=== PATIENT | female | born 1990 | race Caucasian/White ===

== ENCOUNTER 2025-03-24 17:48 | Emergency (ER) | payer OTHER, SELFPAY ==
[2025-03-24 17:48] VITALS: BP 132/94; PULSE 99; RESP 20; TEMP 37; O2SAT 98
--- NOTE | 2025-03-24 18:02 | ED.LOWEXIN ---
HPI - Extremity Injury (Lower) General Chief Complaint: Extremity Injury, Lower Stated Complaint: right knee pain Time Seen by Provider: 03/24/25 18:02 Source: patient and family Mode of arrival: ambulatory Limitations: no limitations History of Present Illness HPI Narrative: Patient is a 34-year-old female with right knee pain and unknown meniscus tear. Patient went to [facility] and got an MRI and was found to have a tear laterally. She has seen validation specialist and they were trying to arrange physical therapy. She has come to the ER for acute treatment at this time. No signs of opioids abuse at this time. No drug-seeking behavior. No injury. MD complaint: other (Right knee pain with known meniscal tear) Onset (ago): month(s) (2-3) Type of Injury: other (No injury) Place: home Severity: severe Severity scale (1-10): 8 Relieving factors: nothing Exacerbating factors: weight bearing, movement and palpation Context: other (No injury) Associated symptoms: snap/pop sensation, swelling and able to partially bear weight Other symptoms: none Treatments prior to arrival: other (None) Related Data Allergies Allergy/AdvReac Type Severity Reaction Status Date / Time No Known Allergies Allergy Verified 03/24/25 18:03 Review of Systems Review of Systems: All systems reviewed & are unremarkable except as noted in HPI and below Constitutional: Constitutional: Reports no additional constitutional complaints Eyes: Eyes: Reports no additional eye complaints ENT: Reports system reviewed and no additional complaints, except as documented Cardiovascular: Cardiovascular: Reports no additional cardiovascular complaints Respiratory: Respiratory: Reports no additional respiratory complaints Gastrointestinal: Gastrointestinal: Reports no additional gastrointestinal complaints Genitourinary: Genitourinary: Reports no additional female genitourinary complaints Musculoskeletal: Musculoskeletal: Reports no additional musculoskeletal complaints Integumentary/Breasts: Skin/Breast: Reports system reviewed and no additional complaints, except as docu Neurologic: Reports system reviewed and no additional complaints, except as documented Psychiatric: Psychiatric: Reports no additional psychiatric complaints Endocrine: Endocrine: Reports no additional endocrine complaints Hematologic/Lymphatic: Hematologic/Lymphatic: Reports no additional hematologic/lymphatic complaints Allergic/Immunologic: Allergic/Immunologic: Reports no additional allergic/immunologic complaints Exam Const: General: healthy appearing Nutritional Appearance: well nourished Orientation/consciousness: patient oriented x3 HENMT: Head: normal to inspection Ears: external ears normal Face/Nose/Sinus: Normal external nose present Eyes: Conjunctivae: conjunctivae normal Pupils: Equal, round and reactive pupils present EOM: EOMs intact bilaterally Neck: Neck: normal visual inspection Chest: Chest palpation & inspection: normal inspection of the chest Resp: Effort & Inspection: normal respiratory effort and not labored Auscultation: clear to auscultation bilaterally and no crackles Cardio: Rate: regular rate Rhythm: regular rhythm Heart sounds: no murmurs GI: Inspection: non-distended GI Palp: Yes Soft to palpation and No Tenderness to palpation present (GI) Auscultation: normal bowel sounds : General: Yes bladder normal to palpation Back/Spine/Pelvis: Back: no CVA tenderness Skin: General skin exam: normal color Rashes: no rashes Wounds: no wounds Neuro: General: patient oriented x3, moves all extremities and no meningeal signs Extrem: General: normal to inspection, no clubbing, cyanosis or edema and no pedal edema Other: Right knee laterally is tender to manipulation of the knee and meniscus manipulation; no warmth or signs of infection; minimal swelling; kneecap in place Psych: Mental Status: mental status grossly normal Affect: normal affect Attitude: cooperative MDM - Extremity Injury (Lower) MDM Narrative Medical decision making narrative: Patient is a 34-year-old female with right knee pain known meniscus tear. X-ray will not be helpful as she already knows that there is a tear. No new injury. No injury in general. We will do a steroid, anti-inflammatory and narcotic. We will send her home with these 3 things in a short supply. She is [facility] to [facility] and I have explained that we do not do refills of any kind of pain medicine. This is a 1st visit and she is been counseled on narcotics at the hospital and in the community. Discharge Plan Discharge Clinical Impression: Acute internal derangement of knee Patient Disposition: Home Condition: Stable Instructions: Meniscus Tear (ED) Additional Instructions: Please touch base with the orthopedic surgeon for next plan of action to repair this right knee. You should be doing rest, ice, compression and elevation to this right knee. Patient Language: Upper Sorbian Prescriptions: New prednisone 20 mg tablet 40 mg PO DAILY 3 Days Qty: 6 0RF meloxicam 15 mg tablet 15 mg PO DAILY Qty: 20 0RF hydrocodone-acetaminophen 5-325 mg tablet 1 tablet PO Q8H PRN (Reason: pain) Qty: 20 0RF Rx Instructions: 1-2 tabs per dose Follow-up/Referrals: UNKNOWN,DOCTOR [Non-Staff] Time of Disposition: 18:26
--- OUTSIDE RECORDS SUMMARY | 2025-03-24 18:28 | XMS_ITS | Clinical Summary ---
Author Organization [facility] Address [address] [place] [address] Care Team Providers Care Auto Claim Representative Name Role Phone No, Physician Primary Care Provider [phone] Allergies No known active allergies Medications losartan (COZAAR) 100 mg tablet Take 1 tablet (100 mg total) by mouth daily 01/05/20 23 Active etonogestreL-ethi nyl estradioL (NUVARING, ELURYNG) 0.12-0.015 mg/24 hr vaginal ringIndications:E ncounter for general counseling and advice on contraceptive management INSERT 1 RING VAGINALLY FOR 3 WEEKS THEN REMOVE FOR 1 WEEK 1 each 2 12/03/19 24 Active Additional Information Patient not taking.Reported on 01/28/2025 methocarbamoL (ROBAXIN) 500 mg tablet Take 1 tablet (500 mg total) by mouth 2 (two) times a day 20 tablet 01/16/20 25 Active Additional Information Patient not taking.Reported on 01/28/2025 HYDROcodone-aceta minophen (NORCO) 5-325 mg per tabletIndications :Pain Take 1 tablet by mouth every 6 (six) hours as needed for pain for up to 12 doses 12 tablet 01/16/20 25 Active Additional Information Patient not taking.Reported on 01/28/2025 losartan (COZAAR) 100 mg tablet Take 1 tablet (100 mg total) by mouth daily 30 tablet 01/16/20 25 Active ketorolac (TORADOL) 10 mg tablet Take 1 tablet (10 mg total) by mouth every 6 (six) hours as needed for pain 20 tablet 02/06/20 25 Active valACYclovir (VALTREX) 1 gram tablet Take 2 tabs (2000 mg) 2 times a days for 1 day. 4 tablet 03/24/20 Active valACYclovir (VALTREX) 1 gram tablet Take 2 tabs (2000 mg) 2 times a days for 1 day. 4 tablet 12/23/19 025 Discontin ued(Reord er) Active Problems Problem Noted Date Diagnosed Date Encounter for screening for COVID-19 05/14/2023 Severe obesity (BMI >= 40) 01/17/2023 Hypertension 01/17/2023 Encounters Date Type Department Care Team Description 03/24/2025 [facility] [address] [facility] [address] [place] [address] Coni Gamboa MD 02/23/2025 12:50 PM CDT Lab [facility] [address] [facility] [address] [place] [address] Missed menses 02/20/2025 [facility] [address] [facility] [address] [place] [address] Coni Gamboa MD Patient issue/concern 02/04/2025 7:56 AM CDT - 02/04/2025 11:59 PM CDT Hospital Encounter [facility] 1 [place] [address] Right knee pain, unspecified chronicity; Other tear of lateral meniscus of right knee as current injury, initial encounter Discharge Disposition: Discharge to home or self care 02/02/2025 Telephone [facility] Medical [facility]opedic [facility] Sports Medicine [facility] [place] [phone] Tania Morales PA MRI 01/28/2025 9:30 AM CDT Office Visit [facility] [address] [place] [address] [address] [place] [address] Tania Morales PA Right knee pain, unspecified chronicity (Primary Dx); Other tear of lateral meniscus of right knee as current injury, initial encounter 01/28/2025 7:37 AM CDT - 01/28/2025 11:59 PM CDT Hospital Encounter [facility] Medical [facility] Medicine [address] [place] [address] [address], [place] [address] Discharge Disposition: Discharge to home or self care 01/28/2025 7:37 AM CDT - 01/28/2025 11:59 PM CDT Hospital Encounter [facility] [address] [place] [address], [place] [phone] Discharge Disposition: Discharge to home or self care 01/28/2025 Orders Only [facility] [address] [place] [address] [address], [place] [phone] Tania Morales PA Right knee pain, unspecified chronicity (Primary Dx); Other tear of lateral meniscus of right knee as current injury, initial encounter 01/20/2025 Telephone [facility] Emergency Department [address] [place] [address] Jose Cruz Hernadez RN 01/19/2025 Results Follow-Up [facility] Emergency Department [address] [place] [address] Jose Cruz Hernadez RN Urinalysis reflex to microscopic and culture Urine 01/18/2025 1:16 PM CDT - 01/18/2025 6:22 PM CDT Emergency [facility] Emergency Department [address] [place] [phone] Acute pain of right knee (Primary Dx); Elevated C-reactive protein (CRP); ESR raised Discharge Disposition: Discharge to home or self care 01/16/2025 Telephone [facility] [place] [address] [place] [phone] Val Cuellar NP 01/16/2025 Telephone [facility] [address] [place] [address] [place] [phone] Vince Arnold MD 01/15/2025 12:23 PM CDT - 01/15/2025 12:39 PM CDT Emergency [facility] Emergency Department 1 [place] [address] Acute pain of right knee (Primary Dx) Discharge Disposition: Discharge to home or self care 12/22/2024 Telephone [facility] [address] [place] [address] Coni Gamboa MD from Last 3 Months Surgical History Surgery Date Site/Laterality Comments SECTION 04/30/2010 - 04/29/2011 CA TONSILLECTOMY PRIMARY/SECONDARY <AGE 12 Tonsillectomy - (Added by TW Conv) Medical History Medical History Date Comments Personal history of other me ntal and behavioral disorders History of depression - (Add ed by TW Conv) 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 Stress headaches - (Added by TW Conv) Overweight Overweight - (Ad ded by TW Conv) Hypertension Genital herpes Family History Medical History Relation Name Comments Hypertension Father Stomach cancer Maternal Grandfather Famil y history of malignant neoplasm of stomach - (Added by TW Conv) Lung cancer Maternal Grandmother Family history of lung cancer - (Added by TW Conv) Stomach cancer Maternal Grandmother Famil y history of malignant neoplasm of stomach - (Added by TW Conv) Hypertension Mother Lung cancer Other Family history of lung cancer - Relation: Grandmother (Added by TW Conv) Relation Name Status Comments Father Maternal Grandfather Maternal Grandmother Mother Other Social History Tobacco Use Types Packs/Day Years Used Date Smoking Tobacco: Former Cigarettes Tobacco Cessation:Counseling Given: Not Answered AUDIT-C Answer Date Recorded Q1: How often do you have a drink containing alc ohol? Never 01/28/2025 Average Number of Drinks Not on file 025 Frequency of Binge Drinking Not on file 04/2024 Personal Safety Answer Date Recorded Have you ever been in or are you currently in a harmful physical or emotional relationship or is someone making you feel afraid or unsafe? 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[employer] Gender Identity Female 11/07/2023 1:03 AM CDT Sexual Orientation Not on file Obstetrics History Para Term AB IAB SAB Ectopic Multiple Livin g Live Births 1 1 1 1 1 Date Outcome GA Total Labor Labor/2nd/3rd Weight Sex Type Anes PTL Laura A1 A5 Name Clin 2010 Term 3.317 kg (7 lb 5 oz) M CS-LT ranv Living Last Filed Vital Signs Vital Sign Reading Time Taken Comments Blood Pressure 135/93 01/28/2025 9:38 AM CDT Pulse 103 01/28/2025 9:38 AM CDT Temperature 37.1 C (98.7 F) 01/18/2025 1:04 PM CDT Respiratory Rate 16 01/18/2025 6:05 PM CDT Oxygen Saturation 100% 01/18/2025 6:05 PM CDT Inhaled Oxygen Concentration - - Weight 120.2 kg (265 lb) 01/28/2025 9:38 AM CDT Height 165.1 cm (5' 5) 01/28/2025 9:38 AM CDT Body Mass Index 44.1 01/28/2025 9:38 AM CDT Plan of Treatment Health Maintenance Due Date Last Done Comments Cervical Cancer Screening 1990 Depression Screening 1990 Hepatitis C Screening 1990 Varicella Vaccines (1 of 2 - 13+ 2-dose series) 07/24/2003 HPV Vaccines (2 - 3-dose series) 04/15/2007 03/18/2007 Regular Well Visit/Exam 18-64 2008 Influenza Vaccine (#1) 2024 01/26/2023, 2002 DTaP/Tdap/Td Vaccine (6 - Td or Tdap) 12/07/2031 12/06/2021, 03/18/2007, 11/29/2004, Additional history exists Hepatitis B Screening Completed 11/21/2000 , 10/09/2000, 07/18/1994, Additional history exists Pneumococcal vaccine <65 Aged Out No longer eligible based on patient's age to complete this topic Procedures Procedure Name Priority Date/Time Associated Diagnosis Comments HCG, BLOOD, QUANTITATIVE Routine 02/23/2025 12:32 PM CDT Missed menses MRI KNEE RIGHT WO CONTRAST Schedule Routine, Read Routine (OP Routine) 02/04/2025 8:17 AM CDT Right knee pain, unspecified chronicity Other tear of lateral meniscus of right knee as current injury, initial encounter XR KNEE RIGHT 4 OR MORE VIEWS Schedule Routine, Read Routine (OP Routine) 01/28/2025 9:28 AM CDT Right knee pain, unspecified chronicity XR PELVIS 1 OR 2 VIEWS Schedule Routine, Read Routine (OP Routine) 01/28/2025 9:25 AM CDT Right knee pain, unspecified chronicity TRICHOMONAS VAGINALIS PCR Routine 01/18/2025 6:11 PM CDT N. GONORRHOEAE/C. TRACHOMATIS AMPLIFICATION STAT 01/18/2025 6:11 PM CDT URINALYSIS AND REFLEX TO MICROSCOPIC AND CULTURE STAT 01/18/2025 6:11 PM CDT XR KNEE RIGHT 4 OR MORE VIEWS ED 01/18/2025 2:02 PM CDT DIFFERENTIAL AUTO STAT 01/18/2025 1:4 3 PM CDT CRP (ACUTE PHASE) STAT 01/18/2025 1:4 3 PM CDT ERYTHROCYTE SEDIMENTATION RATE STAT 01/18/2025 1:43 PM CDT CBC WITH AUTO DIFFERENTIAL STAT 01/18/2025 1:43 PM CDT XR KNEE RIGHT 3 VIEWS ED 01/15/2025 11:42 AM CDT from Last 3 Months Results * hCG, blood, quantitative (02/23/2025 12:32 PM CDT) hCG, quant <0.1 0.0 - 5.0 IUnits/L Comment: Interpretive Data Male: < 5 IU/L Non- premenopausal Female: <5 IU/L The Vijaya hCG Beta Quant assay procedure was used. Results from different manufacturers or methods may not be comparable. Serial testing should be performed using the same method. Interpretive Data was last revised on 2023 Testing performed by: [facility], [address] [place] [address]., [id number] Blood 02/23/2025 12:3 2 PM CDT 02/23/2025 7:33 PM CDT us Coni Gamboa MD LAB BLOOD ORDERABLES Final Result KAJAL [address] [facility] Department [place] [address] * MRI Knee Right WO Contrast (02/04/2025 8:17 AM CDT) Anatomical Region Laterality Modality Lower Extremities Right Magnetic Reson ance 02/04/2025 8:36 AM CDT Narrative 02/04/2025 8:59 AM CDT EXAM DESCRIPTION: MRI KNEE RIGHT WO CONTRAST REASON FOR STUDY: Right knee pain Post/lat pain with ant/sup swelling x 2 weeks, no known injury TECHNIQUE: Multiplanar, multisequence MRI of the right knee was performed without contrast. COMPARISON: Radiographs 01/28/2025 FINDINGS: In the medial compartment, the meniscus is intact. Mild chondrosis of the mesial femoral condyle. In the lateral compartment, the meniscus is intact. There is no focal chondrosis or subchondral edema. In the patellofemoral compartment, there is fissuring of the medial patellar facet. The cruciate and collateral ligaments are intact. The extensor mechanism is normal. The popliteus tendon is intact. Trace knee effusion is present. There are no loose bodies. Small leaky Loaiza cyst is present. Mild anterior knee subcutaneous edema. 2 x 2 cm heterogenous hypointense lesion is present at the anterosuperior aspect of the Hoffa's fat pad, inferior to the patella. IMPRESSION: 1. Intact right knee menisci, cruciate and collateral ligaments. 2. Mild medial and patellofemoral bicompartmental right knee chondrosis. 3. 2 x 2 cm heterogenous hypointense lesion at the anterosuperior aspect of the Hoffa's fat pad, inferior to the patella. This is indeterminate with focal nodular synovitis atop the differential. THIS IS AN ELECTRONICALLY VERIFIED FINAL REPORT 02/04/2025 8:59 AM - Electronically signed by Tim Alcaraz M.D. MF: [id number] Report ID: [id number] Reading Location: [id number] Procedure Note Tim Alcaraz MD - 02/04/2025 EXAM DESCRIPTION: MRI KNEE RIGHT WO CONTRAST REASON FOR STUDY: Right knee pain Post/lat pain with ant/sup swelling x 2 weeks, no known injury TECHNIQUE: Multiplanar, multisequence MRI of the right knee wasperformed without contrast. COMPARISON: Radiographs 01/28/2025 FINDINGS: In the medial compartment, the meniscus is intact. Mild chondrosis of the mesial femoral condyle. In the lateral compartment, the meniscus is intact. There is no focal chondrosis or subchondral edema. In the patellofemoral compartment, there is fissuring of the medialpatellar facet. The cruciate and collateral ligaments are intact. The extensor mechanismis normal. The popliteus tendon is intact. Trace knee effusion is present.There are no loose bodies. Small leaky Loaiza cyst is present. Mild anteriorknee subcutaneous edema. 2 x 2 cm heterogenous hypointense lesion is present at the anterosuperior aspect of the Hoffa's fat pad, inferior to the patella. IMPRESSION: 1. Intact right knee menisci, cruciate and collateral ligaments. 2. Mild medial and patellofemoral bicompartmental right kneechondrosis. 3. 2 x 2 cm heterogenous hypointense lesion at the anterosuperior aspectof the Hoffa's fat pad, inferior to the patella. This is indeterminate withfocal nodular synovitis atop the differential. THIS IS AN ELECTRONICALLY VERIFIED FINAL REPORT 02/04/2025 8:59 AM - Electronically signed by Tim Alcaraz M.D. MF: [id number] Report ID: [id number] Reading Location: [id number] Tania MOJICA IMG MRI PROCEDURES Samara l Result * XR Knee Right 4 or More Views (01/28/2025 9:28 AM CDT) Anatomical Region Laterality Modality Lower Extremities, Knee Right Digital Radiography Narrative 01/28/2025 10:17 AM CDT Radiographs of the right knee reviewed interpreted. No acute fractures or destructive osseous lesions. Joint space is maintained. Images are compared with those obtained in the ER on 01/18/2025. There has been resolution of the suprapatellar effusion. Tania MOJICA IMG XR PROCEDURES Final Result * XR Pelvis 1 or 2 Views (01/28/2025 9:25 AM CDT) Anatomical Region Laterality Modality Body, Pelvis N/A Digital Radiogra phy Narrative 01/28/2025 10:19 AM CDT X-ray of the pelvis viewed and interpreted. There is no evidence of fracture, subluxation, or bony abnormality. Femoral acetabular joint space is maintained Tania MOJICA IMG XR PROCEDURES Final Result * N. gonorrhoeae/C. trachomatis Amplification Urine (01/18/2025 6:11 PM CDT) C. trachomatis Not Detected Not Detected [facility] N. gonorrhoeae Not Detected Not Detected KAJAL COOK Comment: Interpretive Data This assay detects Chlamydia trachomatis and Neisseria gonorrhoeae by nucleic acid amplification testing (NAAT). This assay has been cleared by the [place] Food and Drug administration. The performance characteristics of this test have been verified by the [facility] Molecular Infectious Disease laboratory. The performance characteristics of this test have not been evaluated in individuals less than 14 years of age. Current Interpretive Data last revised 2023. Urine (None) 01/18/2025 6:11 PM CDT 01/18/2025 6:54 PM CDT Carine Luo NP LAB MICROBIOLOGY - GENERAL ORDERABLES Final Result KAJAL [facility] Department [place] [address] [facility] * Trichomonas vaginalis PCR Urine (01/18/2025 6:11 PM CDT) Pathologist [facility] Trichomonas DNA Not Detected Not Detected [facility] Urine 01/18/2025 6:11 PM CDT 01/18/2025 6:54 PM CDT Narrative [facility] - 01/18/2025 8:03 PM CDT Interpretive Data: This assay detects Trichomonas vaginalis by nucleic acid amplification testing (NAAT). This assay has been cleared by the [place] Food and Drug administration. The performance characteristics of this test have been verified by the [facility] Molecular Infectious Disease laboratory. Excess blood in specimens may be inhibitory and result in false negative results. The performance of this test has not been evaluated in women or individuals less than 18 years of age. Carine Luo NP LAB MICROBIOLOGY - GENERAL ORDERABLES Final Result [facility] Department [place] [address] [facility] * (ABNORMAL) Urinalysis reflex to microscopic and culture Urine (01/18/2025 6:11 PM CDT) Pathologist [facility] Color, ur Straw Yellow Clarity, ur Cloudy(A) Clear [facility] Specific gravity, ur 1.009 1.003 - 1.030 [facility] pH, urine 6.5 [facility] Comment: Interpretive Data U rine pH is affected by diet, medications, systemic acid-base disturbances, and renal tubular function. pH may affect urinary stone formation. For example, urine pH below 6.0 may help reduce the tendency for calcium phosphate stones and pH greater than 6.0 may reduce the tendency for uric acid stone formation. Source: [facility] Current Interpretive Data was last revised on 2017 Protein, ur ql Negative Negative [facility] Glucose, ur ql Negative Negative [facility] Ketones, ur Negative Negative [facility] Bilirubin, ur Negative Negative [facility] Blood, ur Negative Negative [facility] Urobilinogen, ur <2.0 <2.0 mg/dL [facility] Nitrite, ur Negative Negative [facility] Leukocyte esterase, ur Negative Negative [facility] UA reflex comment Reflex conditions for microscopic UA and culture not met. [facility] Urine 01/18/2025 6:11 PM CDT 01/18/2025 6:26 PM CDT Carine Luo NP LAB MICROBIOLOGY - GENERAL ORDERABLES Final Result [facility] Department [place] [address] * XR Knee Right 4 or More Views (01/18/2025 2:02 PM CDT) Anatomical Region Laterality Modality Lower Extremities, Knee Right Computed Radiography 01/18/2025 2:24 PM CDT Impressions 01/18/2025 3:07 PM CDT Comparison is made to radiographs of the right knee dated 01/15/2025. No acute fracture or dislocation. There is a large knee joint effusion. Dictated by: Jose Brown MD The radiology attending physician has personally reviewed this study, and had reviewed and/or edited this written report and agrees with it. Electronically signed by: Jose C Tabor M.D. Narrative 01/18/2025 3:07 PM CDT EXAMINATION: XR KNEE RIGHT 4 OR MORE VIEWS HISTORY: 34-year-old woman with right knee pain. Procedure Note Jose C Tabor MD - 01/18/2025 EXAMINATION: XR KNEE RIGHT 4 OR MORE VIEWS HISTORY: 34-year-old woman with right knee pain. IMPRESSION: Comparison is made to radiographs of the right knee dated 01/15/2025. No acute fracture or dislocation. There is a large knee joint effusion. Dictated by: Jose Brown MD The radiology attending physician has personally reviewed this study, and had reviewed and/or edited this written report and agrees with it. Electronically signed by: Jose C Tabor M.D. us Carine SouzaEsequiel Hilliris REAL ESTATE LEGAL SECRETARY IMG XR PROCEDURES Final Res ult * (ABNORMAL) Differential, auto (01/18/2025 1:43 PM CDT) Neutrophil abs 7.31(H) 1.50 - 6.50 K/cumm Imm gran abs 0.04 0.00 - 0.10 K/cumm [facility] Lymphocyte abs 2.95 0.80 - 3.30 K/cumm [facility] Monocyte abs 0.86(H) 0.20 - 0.80 K/cumm [facility] Eosinophil abs 0.12 0.00 - 0.50 K/cumm [facility] Basophil abs 0.03 0.00 - 0.10 K/cumm [facility] Neutrophil pct 64.5 % [facility] Comment: Interpretive Data Percent cell count reference ranges are not reported, since discordance with absolute values may lead to misinterpretation of CBC data. Current Interpretive Data was last revised on 2017. Imm gran pct 0.4 % [facility] Comment: Interpretive Data Percent cell count reference ranges are not reported, since discordance with absolute values may lead to misinterpretation of CBC data. Current Interpretive Data was last revised on 2017. Lymphocyte pct 26.1 % [facility] Comment: Interpretive Data Percent cell count reference ranges are not reported, since discordance with absolute values may lead to misinterpretation of CBC data. Current Interpretive Data was last revised on 2017. Monocyte pct 7.6 % [facility] Comment: Interpretive Data Percent cell count reference ranges are not reported, since discordance with absolute values may lead to misinterpretation of CBC data. Current Interpretive Data was last revised on 2017. Eosinophil pct 1.1 % [facility] Comment: Interpretive Data Percent cell count reference ranges are not reported, since discordance with absolute values may lead to misinterpretation of CBC data. Current Interpretive Data was last revised on 2017. Basophil pct 0.3 % [facility] Comment: Interpretive Data Percent cell count reference ranges are not reported, since discordance with absolute values may lead to misinterpretation of CBC data. Current Interpretive Data was last revised on 2017. Blood 01/18/2025 1:43 PM CDT 01/18/2025 2:12 PM CDT Carine Luo REAL ESTATE LEGAL SECRETARY LAB BLOOD ORDERABLES Final Result Performing Organization Address City/[facility]/ZIP Co de Phone Number [facility] [place] [address] * (ABNORMAL) CBC with auto differential (01/18/2025 1:43 PM CDT) WBC 11.31(H) 3.80 - 9.90 K/cumm Hgb 12.5 11.9 - 15.5 g/dL [facility] Hct 38.4 35.6 - 45.5 % [facility] Plt 340 150 - 400 K/cumm [facility] MPV 10.4 9.1 - 12.3 fL [facility] RBC 4.32 3.90 - 5.20 M/cumm [facility] MCV 88.9 81.3 - 96.4 fL [facility] MCH 28.9 27.1 - 33.3 pg [facility] MCHC 32.6 32.3 - 35.7 g/dL [facility] RDW CV 13.4 11.1 - 14.9 % [facility] RDW SD 43.8 35.7 - 48.1 fL [facility] NRBC abs 0.00 0.00 - 0.01 K/cumm [facility] Blood 01/18/2025 1:43 PM CDT 01/18/2025 2:12 PM CDT Carine Luo REAL ESTATE LEGAL SECRETARY LAB BLOOD ORDERABLES Final Result [facility] Department [place] [address] * (ABNORMAL) Erythrocyte sedimentation rate (01/18/2025 1:43 PM CDT) Erythrocyte sedimentation rate 25(H) 1 - 20 mm/hr Blood 01/18/2025 1:43 PM CDT 01/18/2025 2:12 PM CDT Carine Luo REAL ESTATE LEGAL SECRETARY LAB BLOOD ORDERABLES Final Result Performing Organization Address [facility] Co de Phone Number KAJAL [facility] [place] [address] * (ABNORMAL) CRP (acute phase) (01/18/2025 1:43 PM CDT) CRP 65.3(H) <=10.0 mg/L Blood 01/18/2025 1:43 PM CDT 01/18/2025 2:12 PM CDT Carine Luo REAL [employer]STATE LEGAL SECRETARY LAB BLOOD ORDERABLES Final Result Performing Organization Address [facility] de Phone Number KAJAL [facility] Department [place] [address] * XR Knee Right 3 Views (01/15/2025 11:42 AM CDT) Anatomical Region Laterality Modality Lower Extremities, Knee Right Computed Radiography 01/15/2025 11:5 6 AM CDT Narrative 01/15/2025 11:57 AM CDT EXAM DESCRIPTION: XR KNEE RIGHT 3 VIEWS REASON FOR STUDY: pain Signed Pt to ED via POV. Per Pt she woke up this morning with right knee pain. Pt denies injury. Anterior pain TECHNIQUE: 3 radiographic view(s) of the right knee . COMPARISON: 01/02/2024 FINDINGS: There is no definite evidence of acute displaced fracture or dislocation involving the right knee. There is a suggestion of small suprapatellar joint effusion. IMPRESSION: 1. No definite evidence of acute displaced fracture or dislocation involving the right knee. 2. Suggestion of a small suprapatellar joint effusion. THIS IS AN ELECTRONICALLY VERIFIED FINAL REPORT 01/15/2025 11:57 AM - Electronically signed by Katherin Pérez D.O. PS: PS Report ID: [id number] Reading Location: [id number] Procedure Note Katherin Pérez, DO - 01/15/2025 EXAM DESCRIPTION: XR KNEE RIGHT 3 VIEWS REASON FOR STUDY: pain Signed Pt to ED via POV. Per Pt she woke up this morning with rightknee pain. Pt denies injury. Anterior pain TECHNIQUE: 3 radiographic view(s) of the right knee . COMPARISON: 01/02/2024 FINDINGS: There is no definite evidence of acute displaced fracture or dislocation involving the right knee. There is a suggestion of small suprapatellarjoint effusion. IMPRESSION: 1. No definite evidence of acute displaced fracture or dislocationinvolving the right knee. 2. Suggestion of a small suprapatellar joint effusion. THIS IS AN ELECTRONICALLY VERIFIED FINAL REPORT 01/15/2025 11:57 AM - Electronically signed by Katherin Pérez D.O. PS: PS Report ID: [id number] Reading Location: [id number] [facility] IMG XR PROCEDURES Final Result from Last 3 Months Insurance Care Teams Auto Claim Representative Relationship Specialty Start Date End Date No, Physician PCP - General 11/02/16
--- OUTSIDE RECORDS SUMMARY | 2025-03-24 18:28 | XMS_ITS | Encounter Summary ---
Author Organization [facility] Healthcare Address [address] [place] [address] Care Team Providers Care Cub Reporter Name Role Phone No, Physician Primary Care Provider [phone] Encounter Details Date Type Department Care Team (Late st Contact Info) Description 03/24/2025 Telephone [facility] [address] [place] [id number] Coni Gamboa MD [address] [place] [address] Social History Tobacco Use Types Packs/Day Years Used Date Smoking Tobacco: Former Cigarettes AUDIT-C Answer Date Recorded Q1: How often [...] on file Legal Sex Female 4:14 PM PROMOTIONAL MODEL Gender Identity Female 11/07/2023 1:03 AM CDT Sexual Orientation Not on file documented as of this encounter Ordered Prescriptions Prescription Sig Dispense Quantity Refills Last Filled Start Date End Date valACYclovir (VALTREX) 1 gram tablet Take 2 tabs (2000 mg) 2 times a days for 1 day. 4 tablet 03/24/2025 documented in this encounter Miscellaneous Notes * Addendum Note - Alexa Abbott MA - 03/24/2025 1:56 PM CSTAddended by: ALEXA ABBOTT on: 03/24/2025 01:56 PM Modules accepted: Orders OTIONAL MODEL * Telephone Encounter - Alexa Abbott MA - 03/24/2025 1:55 PM CST Refill sent and LM for pt to return call so we can schedule her an appt. OTIONAL MODEL * Telephone Encounter - Coni Gamboa MD - 03/24/2025 1:30 PM PROMOTIONAL MODEL Okay to refill Valtrex 1000 mg. Take 2 tablets (2000 mg) PO BID x 1 day. Needs annual appointment by early next year (Apr-May). OTIONAL MODEL * Telephone Encounter - Rhonda Jamison MA - 03/24/2025 1:18 PM PROMOTIONAL MODEL Pt called in inquiring about if medication was sent to pharmacy yet. Please advise. OTIONAL MODEL * Telephone Encounter - Reena Vicente MA - 03/24/2025 11:38 AM PROMOTIONAL MODEL Pt called and requested refills on valtrex to be sent to [facility] in [place]. Pharmacy and address updated in chart. Pt cbn#[phone] OTIONAL MODEL documented in this encounter Plan of Treatment Not on file documented as of this encounter Visit Diagnoses Not on filedocumented in this encounter Discontinued Medications Medication Sig Discontinue Reason Start Date End Da te valACYclovir (VALTREX) 1 gram tablet Take 2 tabs (2000 mg) 2 times a days for 1 day. Reorder 12/22/2024 03/24/2025 documented as of this encounter Care Teams Cub Reporter Relationship Specialty Start Date End Date No, Physician PCP - General 11/02/16 documented as of this encounter
[2025-03-24] MEDS: IBUPROFEN 600 MG TABLET PO (18:36)
[2025-03-24] MEDS: HYDROcodone/acetaminophen (*CRX) 10-325 MG TABLET 1 TAB PO (18:36)
[2025-03-24 18:57] VITALS: BP 140/99; PULSE 100; RESP 16; O2SAT 94
== END 2025-03-24 18:57 | disposition home or self-care (01) ==
PROVIDERS: Emergency Provider Emergency Medicine; Referring Provider Internal Medicine
DX: M23.91 Unspecified internal derangement of right knee (principal)
CPT/HCPCS: 99283; A9270; J7512